=== PATIENT | female | born 1995 | race Caucasian/White ===

== ENCOUNTER 2017-10-14 13:27 | Inpatient (IN) | payer BC, MEDICAID ==
[2017-10-14] VITALS (24 sets, daily range): BP systolic 92–135; BP diastolic 50–78; PULSE 76–102; TEMP 97.8–99.3
[~2017-10-14] VITALS: Ht 152.4 cm; Wt 73.2 kg
[2017-10-14] MEDS ORDERED: PRENATAL (14:25)
[2017-10-14] MEDS ORDERED: IRON CHEWS15 MG PO (14:25)
[2017-10-14 15:00] LABS: BASO % 0.2 % (0.0-2.0); EOS % 0.3 % (0-4.0); GRAN # 6.7 (1.4-6.5); HEMATOCRIT 38.7 % (37.0-47.0); HEMOGLOBIN 13.1 g/dl (12.5-16.0); LYMPH # 1.4 (1.2-3.4); LYMPH % 15.5 % (20.0-51.0); MEAN CELL VOLUME 97 fl (80.0-100.0); MEAN CORPUSCULAR HEMOGLOBIN 33 pg (27.0-31.0); MEAN CORPUSCULAR HGB CONC 34 g/dl (33.0-37.0); MEAN PLATELET VOLUME 9.7 fl (7.4-10.4); MONO # 0.8 (0.1-0.6); MONO % 9.2 % (1.7-9.3); PLATELET COUNT 183 K/mm3 (130-400); RED BLOOD COUNT 3.99 M/mm3 (4.10-5.30); REDCELL DISTRIBUTION WIDTH-CV 12.6 % (11.5-14.5)
[2017-10-15] VITALS (85 sets, daily range): BP systolic 84–129; BP diastolic 40–74; PULSE 80–137; TEMP 97.8–98.9
[2017-10-16] VITALS (7 sets, daily range): BP systolic 93–110; BP diastolic 51–68; PULSE 78–92; TEMP 98.3–98.4
[2017-10-16 07:21] LABS: MEAN CELL VOLUME 99 fl (80.0-100.0); MEAN CORPUSCULAR HEMOGLOBIN 34 pg (27.0-31.0); MEAN CORPUSCULAR HGB CONC 34 g/dl (33.0-37.0); MEAN PLATELET VOLUME 9.6 fl (7.4-10.4); PLATELET COUNT 157 K/mm3 (130-400); RED BLOOD COUNT 3.58 M/mm3 (4.10-5.30); REDCELL DISTRIBUTION WIDTH-CV 12.8 % (11.5-14.5)
[2017-10-16 07:22] LABS: HEMATOCRIT 35.5 % (37.0-47.0)
[2017-10-16 07:50] LABS: BAND 22 % (0-10); LYMPHOCYTE 9 % (20.0-51.0); NEUTROPHILS 64 % (42.0-75.2)
[2017-10-16 07:51] LABS: PLATELET ESTIMATE NORMAL (NORMAL)
[2017-10-17 07:56] VITALS: BP 101/67; PULSE 91; TEMP 97.8
[2017-10-17] MEDS ORDERED: IBU600 MG PO (07:56)
[2017-10-17] MEDS ORDERED: PERCOCET 325 MG1 TA2 PO (07:56)
[2017-10-17 16:04] VITALS: BP 116/78; PULSE 82; TEMP 98
[2017-10-17 20:15] VITALS: BP 102/49; PULSE 94; TEMP 98.5
[2017-10-18 08:00] VITALS: BP 100/54; PULSE 82; TEMP 97.6
== END 2017-10-18 14:30 | disposition home or self-care (01) | DRG 766 ==
LOC: LDR 13:27 → OB 13:27
PROVIDERS: Obstetrics & Gynecology
PROC: 10D00Z1 Extraction of Products of Conception, Low, Open Approach (ICD-10-PCS; principal; 2017-10-15)
PROC: 3E033VJ Introduction of Other Hormone into Peripheral Vein, Percutaneous Approach (ICD-10-PCS; 2017-10-15)
DX: O41.03X0 Oligohydramnios, third trimester, not applicable or unspecified (principal); O48.0 Post-term pregnancy; O61.0 Failed medical induction of labor; Z37.0 Single live birth; Z3A.40 40 weeks gestation of pregnancy
CPT/HCPCS: J0690; J1885; J2210; J2270; J2370; J2405; J2550; J2590; J7120

== ENCOUNTER 2018-02-14 21:11 | Emergency (ER) | payer BC, MEDICAID ==
[~2018-02-14] VITALS: Ht 152.4 cm; Wt 65.1 kg
[~2018-02-14 21:11] MED LIST: IBU600 MG PO; IRON CHEWS15 MG PO; PERCOCET 325 MG1 TA2 PO; PRENATAL
[2018-02-14 21:16] VITALS: BP 107/54; TEMP 97.3
[2018-02-14 22:32] VITALS: PULSE 108
== END 2018-02-14 22:32 | disposition home or self-care (01) ==
LOC: COL.ER 21:11
DX: R10.13 Epigastric pain (principal); Z79.1 Long term (current) use of non-steroidal anti-inflammatories (NSAID); Z79.891 Long term (current) use of opiate analgesic

== ENCOUNTER → 2019-02-05 | Outpatient (CLI) | payer BC, MEDICAID | LOC: ZCOL.LAB 16:22 | DX: R00.2 Palpitations (principal) ==